=== PATIENT | female | born 1995 | race Caucasian/White ===

== ENCOUNTER 2016-04-16 16:35 | Emergency (ER) | payer BC, OTHER ==
[2016-04-16] MEDS ORDERED: TYLENOL EXTRA STRENGTH 500 MG PO ONE (16:59)
[2016-04-16] MEDS ORDERED: TYLENOL EXTRA STRENGTH 500 MG ONE (17:00)
--- NOTE | 2016-04-16 17:25 | ERPHSYRPT ---
- History of Present Illness Time Seen by Provider: 04/16/16 17:00 Source: patient Exam Limitations: clinical condition Patient Subjective Stated Complaint: pt states she began having bodyaches and chilling all day today. denies any vomiting. pt states she has a sore throat. Triage Nursing Assessment: pt pink, warm, dry. pt afebrile at this time. lung sounds clear and equal. Physician History: PATIENT COMPLAINS OF FEVER, CHILLS GENERALIZED BODY ACHES TODAY ASSOCIATED WITH SORETHROAT. DENIES COUGH, DIFFICULTY BREATHING, FACIAL PAIN OR SINUS PRESSURE. Timing/Duration: today Cough Quality/Degree: no cough Possible Cause: occasional episodes Associated Symptoms: fever, chills, sore throat International travel in last 2 weeks: No Allergies/Adverse Reactions: bee pollen Allergy (Verified 04/16/16 16:56) Penicillins Allergy (Verified 04/16/16 16:56) Home Medications: Citalopram Hydrobromide [Celexa] 20 mg PO DAILY 04/16/16 [History] Hx Tetanus, Diphtheria Vaccination/Date Given: Yes (up to date) Hx Influenza Vaccination/Date Given: No Hx Pneumococcal Vaccination/Date Given: No Immunizations Up to Date: Yes - Review of Systems Constitutional: Fever, No Chills Eyes: No Symptoms Ears, Nose, & Throat: Throat Pain Respiratory: No Symptoms, No Cough, No Dyspnea Cardiac: No Chest Pain, No Edema, No Syncope Abdominal/Gastrointestinal: No Symptoms, No Abdominal Pain, No Nausea, No Vomiting, No Diarrhea Genitourinary Symptoms: No Symptoms, No Dysuria Musculoskeletal: No Symptoms, No Back Pain, No Neck Pain Skin: No Rash Neurological: No Dizziness, No Focal Weakness, No Sensory Changes Psychological: No Symptoms Endocrine: No Symptoms All Other Systems: Reviewed and Negative - Past Medical History Pertinent Past Medical History: Yes Psycho-Social History: Depression - Past Surgical History Past Surgical History: Yes Gastrointestinal: Cholecystectomy Musculoskeletal: Orthopedic Surgery - Social History Smoking Status: Never smoker Exposure to second hand smoke: Yes Drug Use: none Patient Lives Alone: No - Female History Hx Last Menstrual Period: end mar 2016 - Nursing Vital Signs Nursing Vital Signs: Initial Vital Signs Temperature 98.9 F Temperature Source Oral Pulse Rate 80 Respiratory Rate 18 Blood Pressure [Right Arm] 116/79 Pain Intensity 4 - Physical Exam General Appearance: no apparent distress, alert Eye Exam: PERRL/EOMI, eyes nml inspection Ears, Nose, Throat Exam: normal ENT inspection, TMs normal, moist mucous membranes, pharyngeal erythema Neck Exam: normal inspection, non-tender, supple, full range of motion Respiratory Exam: normal breath sounds, lungs clear, No respiratory distress Cardiovascular Exam: regular rate/rhythm, normal heart sounds Gastrointestinal/Abdomen Exam: soft, No tenderness Back Exam: normal inspection, No CVA tenderness, No vertebral tenderness Extremity Exam: normal inspection, normal range of motion Neurologic Exam: alert, oriented x 3, cooperative, normal mood/affect, sensation nml, No motor deficits Skin Exam: normal color, warm, dry, No rash Lymphatic Exam: No adenopathy SpO2 Interpretation: normal SpO2: 98 Oxygen Delivery: Room Air Ordered Tests: Active Orders 24 hr Category Date Time Status CULTURE, THROAT Stat Lab 04/16/16 17:19 Received STREP SCREEN-BETA A Stat Lab 04/16/16 17:19 Completed Medication Summary Discontinued Medications Generic Name Dose Route Start Last Admin Trade Name Freq PRN Reason Stop Dose Admin Acetaminophen 1,000 mg 04/16/16 16:59 04/16/16 17:01 Tylenol Extra Strength 500 Mg PO 04/16/16 17:00 1,000 mg STAT ONE Administration Acetaminophen Confirm 04/16/16 17:00 Tylenol Extra Strength 500 Mg Administered 04/16/16 17:01 Dose 1,000 mg .ROUTE .[employer] ONE Lab/Rad Data: Laboratory Results 04/16/16 04/16/16 Range/Units 17:19 17:19 Influenza Type A Ag NEGATIVE (NEGATIVE) Influenza Type B Ag NEGATIVE (NEGATIVE) RSV (PCR) NEGATIVE (Negative) Streptococcus Screen NEGATIVE (Negative) - Progress Progress Note: 04/16/16 18:59 PATIENT GIVEN ZITHROMAX 500MG ORALLY Antibiotics given: Yes Counseled pt/family regarding: lab results, diagnosis, need for follow-up - Departure Time of Disposition: 19:05 Departure Disposition: Home Clinical Impression: ACUTE PHARYNGITIS Condition: Stable Critical Care Time: No Additional Instructions: TAKE TYLENOL OR MOTRIN NEEDED FOR FEVER OR GENERALIZED BODY ACHES. ANTIBIOTIC ZITHROMAX 250MG, 2 TABLETS DAY 1, THEM 1 TABLET DAILY FOR 4 DAYS. CONSULT YOUR FAMILY PHYSICIAN IN 1 WEEK FOR EVALUATION. Prescriptions: Azithromycin 250 mg [Zithromax 250 MG TABLET] 250 mg PO ZPACK #6 tablet
[2016-04-16] MEDS ORDERED: Zithromax 250 MG TABLET PO ONE (18:55)
[2016-04-16] MEDS ORDERED: Zithromax 250 MG TABLET ONE (18:57)
[2016-04-16 19:03] VITALS: BP 122/78; PULSE 83; O2SAT 98
== END 2016-04-16 19:02 | disposition home or self-care (01) ==
LOC: ED 16:35
DX: J02.9 Acute pharyngitis, unspecified (principal)
CPT/HCPCS: 87070; 87430; 87631; 99284